=== PATIENT | female | born 1980 | race Caucasian/White ===

== ENCOUNTER 2016-11-14 10:17 | Emergency (ER) | payer OTHER ==
[~2016-11-14] VITALS: Ht 177.8 cm; Wt 108.9 kg
--- NOTE | ~2016-11-14 | EKG ---
PATIENT: SYLVESTER HAHN UNIT #: [id number] Ventricular Rate: 82 BPM Atrial Rate: 82 BPM P-R Interval: 144 ms QRS Duration: 76 ms Q-T Interval: 398 ms QTC Calculation(Bezet): 464 ms P [place]: 22 degrees Calculated R [place]: 75 degrees Calculated T [place]: 43 degrees Diagnosis Line: ? Sinus rhythm with low amplitude p wave Diagnosis Line: Non Specific ST Changes- Abnormality Diagnosis Line: Poor data quality Diagnosis Line: Confirmed by ABNER LONGORIA, BRAD ([id number]) on Diagnosis Line: 11/17/2016 3:43:46 PM INTERPRETING MD: RAJ
--- NOTE | ~2016-11-14 | CR72 ---
[facility] A Service of [facility] & [facility] RADIOLOGY TEXT RESULTS PATIENT: SYLVESTER HAHN LOCATION: [facility] : 78 UNIT #: [id number] AGE: [address]: Odell Frankel MD SEX: F ORDER DR: [id number] [facility] [address] [facility] [place], [place] [address] [id number] MR#: [id number] Acc #: [id number] NAME: SYLVESTER HAHN : 1980 SEX: F STUDY DATE/TIME: 11/14/2016 12:48 UNIT: [facility] ROOM: STUDY DESCRIPTION: CR Chest Single View Portable Attending Physician: Odell Frankel M.D. Ordering Physician: Odell Frankel M.D. Primary Care Physician: Generic Doctor Not In System MEDICAL IMAGING REPORT This report is preliminary unless electronic signature is present EXAM Single view chest INDICATIONS Chest pain for 1 week. Shortness of air. FINDINGS Single portable AP chest without comparison. Heart mediastinal contours normal. Lungs are clear. No pleural effusion. IMPRESSION Negative chest radiograph. Dictated by... Amrik Lubin M.D. THIS IS AN ELECTRONICALLY VERIFIED REPORT Amrik Lubin M.D. at 11/15/2016 5:11 PM Sunita TD: 11/14/2016 16:33 JOB #: [id number] MEDICAL IMAGING REPORT Page 1 of 1 COPY
[~2016-11-14 10:17] MED LIST: FIORICET 50-321 EACH PO; MACROBID100 MG DOB; PHENERGAN25 MG PO; ZOFRAN ODT4 MG DOB
[2016-11-14 12:53] LABS: BASOPHIL# 0.1 X10e3 (0-0.3); BASOPHIL% 0.9 % (0-2.5); EOSINOPHIL# 0.1 X10e3 (0-0.7); HEMOGLOBIN 14.2 gm/dL (12.0-16.0); LYMPHOCYTE# 1.3 X10e3 (1.0-3.5); LYMPHOCYTE% 15.3 % (17.0-45.0); MEAN CELL VOLUME 82.5 FL (83-96); MEAN CORPUSCULAR HEMOGLOBIN 27.3 PG (28-34); MONOCYTE# 0.3 X10e3 (0-1.0); MONOCYTE% 3.1 % (3.0-12.0); NEUTROPHIL% 79.7 % (40-75); PLATELET COUNT 207 X10e3 (140-420); RED BLOOD COUNT 5.21 X10e (3.90-5.30); RED CELL DISTRIBUTION WIDTH 15.6 % (11.0-15.5); WHITE BLOOD COUNT 8.8 X10e3 (4.0-10.5)
[2016-11-14 12:54] LABS: DIFF IND NO
[2016-11-14 13:05] LABS: INR 1.1; PROTHROMBIN TIME (PATIENT) 11.4 SECONDS (10.0-11.7)
[2016-11-14 13:25] LABS: ALBUMIN SERUM 4.4 g/dL (3.5-5.0); BILIRUBIN, DIRECT 0.1 mg/dL (0.0-0.2); BILIRUBIN,INDIRECT 0.5 mg/dL (0.0-0.9); BILIRUBIN,TOTAL 0.6 mg/dL (0.2-2.0); BUN/CREATININE RATIO 14.44; CALCIUM SERUM 9.2 mg/dL (8.4-10.2); CREATININE SERUM 0.9 mg/dL (0.6-1.4); GLOM FILT RATE Estimated 81.7 mL/min (>60); POTASSIUM 4.1 mmol/L (3.5-5.1); PROTEIN TOTAL SERUM 7.9 g/dL (6.0-8.3)
[2016-11-14 13:26] LABS: POC - CKMB 1.1 ng/mL (0.0-7.9); POC - TROPONIN <0.05 ng/mL (<=0.05)
== END 2016-11-14 15:50 | disposition home or self-care (01) ==
LOC: CED 10:17
PROVIDERS: Emergency Medicine
DX: J40 Bronchitis, not specified as acute or chronic (principal); Z88.2 Allergy status to sulfonamides; Z88.1 Allergy status to other antibiotic agents
CPT/HCPCS: 36415; 71010; 80048; 80076; 82553; 83605; 84484; 85025; 85610; 87040; 93005; 94640; 96361; 96374; 96375; 99285; J1885; J2930